=== PATIENT | male | born 1980 | race Caucasian/White ===

== ENCOUNTER → 2019-06-19 | Outpatient (CLI) | payer OTHER ==
--- NOTE | 2019-07-01 22:37 | PFR/MVV ---
[facility] [place] [address] PULMONARY FUNCTION MVV/REPORT Name: ARJUN MERCER Room #: REG MEDINA [facility]ia.#: [id number] Admission: 06/19/19 Attend Phys: Lawrence Poon MD Discharge: Date of : 78 Report #: [id number] THIS REPORT FOR: //name// >> SPIROMETRY: (BTPS) Height: 66 in cm Weight: 134 lbs kg Exam Date: 06/19/19 PRE-RX POST-RX PRED BEST %PRED BEST %PRED %CHG FVC LITERS . 4.55 . 4.78 . 105 . 4.81 . 106 . 1 FEV1 LITERS . 3.56 . 3.26 . 92 . 3.56 . 100 . 9 FEV1/FVC % . 77 . 68 . 88 . 74 . 96 . 9 [id number]% L/Sec . 3.86 . 1.92 . 50 . 2.87 . 74 . 49 PEF L/SEC . 8.40 . 7.48 . 89 . 6.91 . 82 . -8 FEF50/FIF50 UNITLESS . <1.00 . 0.81 . . 0.99 . . 22 MVV L/Min . 153 . 52 . 34 f 1/Min . . 175 . >> LUNG VOLUMES: (BTPS) PRE-RX POST-RX PRED AVG %PRED AVG %PRED %CHG VC Liters . 4.55 . 4.78 . 105 . . . TLC Liters . 6.02 . 7.16 . 119 . . . RV Liters . 1.74 . 2.38 . 137 . . . RV/TLC % . 30 . 33 . 111 . . . FRC PL Liters . 3.46 . 3.32 . 96 . . . FRC N2 Liters . 3.46 . . . . . ERV Liters . 1.52 . 0.94 . 62 . . . IC Liters . 3.03 . 2.37 . 78 . . . >> DIFFUSION: DLCO ml/Min/mmHg . 23.7 . 21.3 . 90 . . . DL Bonnie ml/Min/mmHg . 23.7 . 21.3 . 90 . . . DLCO/VA ml/Min/mmHg . 4.31 . 0.08 . 2 . . . VA Liters . 6.34 . . 4378 . . . COMMENTS: COMMENTS: >> RESISTANCE: [facility] [address] [place] [address] PULMONARY FUNCTION MVV/REPORT Name: ARJUN MERCER Room #: REG [facility].#: [id number] Admission: 06/19/19 Attend Phys: Lawrence Poon MD Discharge: Date of : 78 Report #: [id number] PRE-RX PRED AVG %PRED Raw Total cmH20/L/Sec . . 3.79 . Raw Insp cmH20/L/Sec . . 0.32 . Raw Exp cmH20/L/Sec . . 0.68 . Raw cmH20/L/Sec . 1.31 . 1.91 . 146 Gaw L/Sec/cmH20 . 0.830 . 0.524 . 63 sRaw cmH20 Sec . 4.52 . 7.98 . 176 sGaw l/cmH20 Sec . 0.221 . 0.125 . 57 Vtq Liters . . 4.19 . # = OUTSIDE 95% CONFIDENCE INTERVAL CALIBRATION: PRED: 3.00 ACTUAL: EXP 3.01 INSP 3.02 [facility]-OL10-06 [facility]-05 N-1804-4 >> INTERPRETATION/IMPRESSION: CC: Lawrence LAFLEUR physician/PCP SPIROMETRY: FEV1 is 3.26 liters (92%), FVC is 4.78 liters (105%). FEV1/FVC ratio is 68%. Post-bronchodilator therapy shows intermediate response with a change of 9% in the FEV1. LUNG VOLUMES: Total lung capacity is 7.16 liters (119%). RV is 2.38 liters (137%). Diffusing capacity is normal at 90%. IMPRESSION: Pulmonary function studies are consistent with a mild obstructive airflow defect with mild hyperinflation. Diffusing capacity is normal. <ELECTRONICALLY SIGNED> By: Waqar Tomas MD 07/01/19 2237 Waqar Tomas MD /nt
== END ==
LOC: RAD 09:31
DX: J98.11 Atelectasis (principal); J45.909 Unspecified asthma, uncomplicated

== ENCOUNTER → 2019-07-14 | Outpatient (CLI) | payer OTHER | LOC: RAD 15:33 | DX: M25.561 Pain in right knee (principal); M13.80 Other specified arthritis, unspecified site ==